=== PATIENT | female | born 1950 | race Caucasian/White ===

== ENCOUNTER 2020-10-09 11:19 | Emergency (ER) | payer MEDICARE, OTHER ==
[~2020-10-09] VITALS: Ht 147.3 cm; Wt 46.9 kg
--- NOTE | 2020-10-09 11:26 | NUR ---
behavior specialist: EKG done in triage
[2020-10-09] MEDS ORDERED: LEVO75TA PO (11:37)
[2020-10-09] MEDS ORDERED: BIMA2.5D EACHEYE (11:37)
--- NOTE | 2020-10-09 11:38 | NUR ---
PT C/O FEELING "HEART SKIP BEATS" X2 DAYS. DENIES CP, SOB. PT STATES SHE HAS BEEN FEELING TIRED DURING LONG WALKS LAST COUPLE DAYS. PT CONNECTED TO MONITORING. CALL LIGHT IN REACH. SPOUSE AT BEDSIDE.
[2020-10-09 12:09] LABS: BASOPHILS % (AUTO) 1 % (0-1); EOSINOPHILS % (AUTO) 1 % (1-7); LYMPHOCYTES % (AUTO) 33 % (22-44); MEAN CORPUSCULAR HEMOGLOBIN 31.9 pg (27.0-34.8); MEAN CORPUSCULAR HGB CONC 33.8 g/dL (32.4-35.8); MEAN PLATELET VOLUME 7.1 fL (7.4-10.4); MONOCYTES % (AUTO) 8 % (2-9); NEUTROPHILS % (AUTO) 57 % (42-75); PLATELET COUNT 347 x10^3/uL (130-400); RED BLOOD COUNT 4.51 x10^6/uL (3.82-5.3); RED CELL DISTRIBUTION WIDTH 13.6 % (9.6-15.2)
[2020-10-09 12:18] LABS: MD NO
[2020-10-09 12:24] VITALS: BP 145/79
[2020-10-09 12:32] LABS: ANION GAP 4 mmol/L (5-15); CALCIUM 9.4 mg/dL (8.5-10.1); CHLORIDE 111 mmol/L (98-107); CREATININE 0.89 mg/dL (0.55-1.02)
--- NOTE | 2020-10-09 12:54 | NUR ---
ALL RESULTS ARE BACK AT THIS TIME. CHART UP FOR RECHECK.
== END 2020-10-09 13:21 | disposition home or self-care (01) ==
LOC: ED 12:06
DX: R00.2 Palpitations (principal); R07.9 Chest pain, unspecified
CPT/HCPCS: 36415; 71045; 80048; 82040; 84443; 85025; 93005; 99285